=== PATIENT | male | born 1975 | race Caucasian/White ===

== ENCOUNTER 2017-09-10 19:35 | Emergency (ER) | payer MEDICARE, MEDICAID ==
[~2017-09-10] VITALS: Ht 167.6 cm; Wt 120.2 kg
[2017-09-10 19:40] VITALS: BP 126/83
[2017-09-10 20:03] LABS: APPEARANCE,URINE Slightly Cloudy (CLEAR); BILIRUBIN,URINE Negative (NEGATIVE); BLOOD, URINE Negative Ery/uL (NEGATIVE); COLOR,URINE Amber (YELLOW); KETONES,URINE Negative (NEGATIVE); LEUKOCYTE ESTERASE ,URINE Negative (NEGATIVE); NITRITE, URINE Negative (NEGATIVE); PH,URINE 5.5 (5.0-8.0); PROTEIN,URINE Negative (NEGATIVE); UGLUCOSE Negative (NEGATIVE); UROBILINOGEN,URINE 0.2 EU/dL (0.2)
[2017-09-10] MEDS ORDERED: CEFTRIAXONE 1 G VIAL IM ONE (22:30)
[2017-09-10] MEDS ORDERED: AZITHROMYCIN 250 MG TABLET PO ONE (22:30)
[2017-09-10] MEDS ORDERED: CEFTRIAXONE 1 G VIAL ONE (22:42)
[2017-09-10] MEDS ORDERED: AZITHROMYCIN 250 MG TABLET ONE (22:43)
[2017-09-10] MEDS ORDERED: LIDOCAINE /MPF 1% VIAL 5 ML VIAL ONE (22:44)
== END 2017-09-10 22:45 | disposition home or self-care (01) ==
LOC: ER 19:35
DX: R30.0 Dysuria (principal); I10 Essential (primary) hypertension; J44.9 Chronic obstructive pulmonary disease, unspecified; M10.9 Gout, unspecified; N40.0 Benign prostatic hyperplasia without lower urinary tract symptoms; Z88.8 Allergy status to other drugs, medicaments and biological substances
CPT/HCPCS: 81001; 87491; 87591; 96372; 99284; A4606; J0696; J3490; 81000-TC; Z7610